=== PATIENT | male | born 1945 | race Caucasian/White ===

== ENCOUNTER 2017-06-23 11:57 | Observation (INO) | payer BC, MEDICARE ==
[2017-06-23 12:59] LABS: #Basophils 0.1 thou/uL (0.0-0.2); #Eosinphils 0.2 thou/uL (0.0-0.7); #Lymphocytes 1.9 thou/uL (1.20-3.40); #Monocytes 0.8 thou/uL (0.11-0.59); #Neutrophils 8.3 thou/uL (1.40-6.50); %Basophils 0.7 % (0.0-1.0); %Eosinophils 1.9 % (0.0-10.0); %Lymphocytes 16.8 % (21.0-51.0); %Monocytes 7.4 % (0.0-10.0); Hematocrit 36.6 % (42.0-52.0); Mean Platelet Volume 7.9 fL (7.4-10.4); Red Blood Cell (RBC) Count 3.78 mill/uL (4.70-6.10); White Blood Cell (WBC) Count 11.3 thou/uL (4.8-10.8)
[2017-06-23 13:15] LABS: PTT 28.5 SEC (22.9-36.1); Prothrombin Time 13.4 SEC (12.0-14.7)
[2017-06-23 13:25] LABS: ALT (SGPT) 20 U/L (8-55); AST (SGOT) 17 U/L (5-34); Alkaline Phosphatase 74 U/L (40-150); Anion Gap 14 mmol/L (10-20); BUN (Urea Nitrogen) 26 mg/dL (8.4-25.7); Bilirubin, Total 0.5 mg/dL (0.2-1.2); Calc. Creatinine Clearance 0 mL/min (70-130); Calcium 8.9 mg/dL (7.8-10.44); Carbon Dioxide 24 mmol/L (23-31); Chloride 105 mmol/L (98-107); Estimated GFR-MDRD Greater than 90; Protein, Total 6.7 g/dL (5.8-8.1)
[2017-06-23] MEDS ORDERED: Ondansetron HCl/PF 4 MG/2 ML Vial IVP PRN (14:04)
[2017-06-23] MEDS ORDERED: Senokot 8.6 MG TAB PO PRN (14:04)
[2017-06-23] MEDS ORDERED: Milk Of Magnesia 30 ML UDCUP PO PRN (14:04)
[2017-06-23] MEDS ORDERED: Dextrose 5% in Water 1,000 ML IV PRN (14:04)
[2017-06-23] MEDS ORDERED: Zolpidem Tartrate 5 MG TAB PO PRN (14:04)
[2017-06-23] MEDS ORDERED: Acetaminophen 325 MG TAB PO PRN (14:04)
[2017-06-23] MEDS ORDERED: Loperamide HCl 2 MG CAP PO PRN (14:04)
[2017-06-23] MEDS ORDERED: Insulin Regular 300 UNITS/3 ML VIAL SC PRN (14:04)
[2017-06-23] MEDS ORDERED: Ondansetron ODT 4 MG TAB PO PRN (14:04)
[2017-06-23] MEDS ORDERED: Loratadine 10 MG TAB PO PRN (14:04)
[2017-06-23] MEDS ORDERED: HumaLOG 300 UNITS/3 ML VIAL SC PRN (14:04)
[2017-06-23] MEDS ORDERED: Sodium Chloride 0.65% Nasal 44 ML BOT EA NARE PRN (14:04)
[2017-06-23] MEDS ORDERED: Artificial Tears 18 DROP/0.9 ML EA EYE PRN (14:04)
[2017-06-23] MEDS ORDERED: Mag-Al 1200 mg/1200 mg/30 ML UDCUP PO PRN (14:04)
[2017-06-23] MEDS ORDERED: Diabetic Tussin 200 MG/10 ML UDCUP PO PRN (14:04)
[2017-06-23] MEDS ORDERED: Eucerin (Mineral Oil/Petrolatum,White) 30 gm Jar TOP PRN (14:04)
[2017-06-23] MEDS ORDERED: Dextrose 50% Abboject 50 ML SYRINGE SLOW IVP PRN (14:04)
[2017-06-23] MEDS ORDERED: HYDROcodone/Acetaminophen 5/325 mg Tablet PO PRN (14:04)
[2017-06-23] MEDS ORDERED: Nitroglycerin 0.4 MG TAB (25 Tab Bottle) SL PRN (14:04)
--- NOTE | 2017-06-23 15:21 | HP ---
PRIMARY CARE PHYSICIAN: Micky Ragsdale MD REASON FOR ADMISSION: Lower gastrointestinal bleed. HISTORY OF PRESENT ILLNESS: A 72-year-old male who has history of hypertension, diabetes type 2, CO PD as well as diastolic CHF, who had a colonoscopy by Dr. Weeks on , 06/18/2017. At that merrick e, patient had 3 polyps removed and polyp pathology came back as a tubular adenoma and negative for malignancy. The patient was instructed to hold Plavix, which he was taking at home up until Thursday. Patient started taking Plavix on Thursday. Today, patient was having rectal bleed. Patient initial ly had dark blood and subsequently he had two episodes of bright red blood per rectum. He had three episodes of hematochezia at home and he had another episode of hematochezia with gas in the emergen cy room. Patient was feeling a little bit weak, fatigued. He denies any dizziness. He denies any chest pain. He denies any syncope. He denies any fever or chills. He denies taking any other bloo d thinner medication other than Plavix. He denies taking any other pain medication. Today in the emergency room, he had routine blood test and hemoglobin was 11.8. He was hemodynamica lly stable. The patient is being observed to telemetry floor for close monitoring. Patient does have dyspnea and he has underlying chronic obstructive pulmonary disease. He is using Breo Ellipta, which he ran out at home. REVIEW OF SYSTEMS: The following complete review of systems was negative, unless otherwise mentione d in the HPI or below: CONSTITUTIONAL: Weight loss or gain, ability to conduct usual activities. SKIN: Rash, itching. EYES: Double vision, pain. ENT/MOUTH: Nose bleeding, neck stiffness, pain, tenderness. CARDIOVASCULAR: Palpitations, dyspnea on exertion, orthopnea. RESPIRATORY: Shortness of breath, wheezing, cough, hemoptysis, fever or night sweats. GASTROINTESTINAL: Poor appetite, abdominal pain, heartburn, nausea, vomiting, constipation, or diar bernardo. GENITOURINARY: Urgency, frequency, dysuria, nocturia. MUSCULOSKELETAL: Pain, swelling. NEUROLOGIC/PSYCHIATRIC: Anxiety, depression. ALLERGY/IMMUNOLOGIC: Skin rash, bleeding tendency. Please see my HPI for pertinent positives and negatives. All other review of system reviewed and ne gative except as mentioned in the HPI. PAST MEDICAL HISTORY: Coronary artery disease, diabetes type 2, hypertension, dyslipidemia, COPD, C HF, peripheral vascular disease, chronic low back pain, benign enlargement of prostate, and dyslipid emia. PAST SURGICAL HISTORY: Bilateral knee surgery, appendicectomy, CABG x3, colonoscopy with polypectom y. PAST PSYCHIATRIC HISTORY: Reviewed and negative. SOCIAL HISTORY: Patient is . He smokes about 1 pack per day since age of 17. He denies any alcohol abuse. He denies any other illicit drug abuse. FAMILY HISTORY: No strong family history of premature coronary artery disease, stroke, or cancer. ALLERGIES: No known drug allergies. CURRENT HOME MEDICATIONS: Norvasc 5 mg p.o. daily, metformin 850 mg twice daily, Flomax 0.4 mg p.o. daily, Lipitor 80 mg p.o. at bedtime, Plavix 75 mg p.o. daily, [place] 10 one tablet q.6 hourly p.r.n ., irbesartan with hydrochlorothiazide 300/12.5 one tablet p.o. daily. EMERGENCY ROOM COURSE: Patient is receiving IV fluid. PHYSICAL EXAMINATION: VITAL SIGNS: On arrival, blood pressure 135/71, pulse 81, respiratory rate 18, temperature 97.5, sa turation 94% on room air, weight 108.9 kilograms. GENERAL: Patient is currently alert, awake, in no acute distress. HEENT: Head: Normocephalic, atraumatic. Eyes: Pupils round, reactive to light. Extraocular musc les intact. ENT: Oropharynx within normal limits. Moist mucous membranes. No oral lesions. No p haryngeal erythema. No exudate. NECK: Supple. Range of motion is normal. No meningeal signs of irritation. LUNGS: Clear to auscultation without any rhonchi or rales. CARDIAC: S1, S2 regular without any murmur. ABDOMEN: Soft, bowel sounds present, nontender, nondistended. No organomegaly, no mass, no suprapu bic tenderness. BACK: Unremarkable. No CVA tenderness. EXTREMITIES: Upper extremity passive movement of all joints are normal. Trace lower extremity aman a. Good peripheral pulsation. SKIN: No skin rash. HEMATOLOGICAL: No lymphadenopathy. NEUROLOGIC: Nonfocal examination. Speech normal. GENITOURINARY: Rectal examination done in the emergency room, showing bright red blood per rectum. FAMILY HISTORY: No strong family history of premature coronary artery disease, stroke, or cancer. SIGNIFICANT LABORATORY: CBC: WBC 11.3, hemoglobin 11.8, platelets 328. INR 1.0. BMP: Sodium 139 , potassium 3.8, chloride 105, carbon dioxide 24, anion gap 14, BUN 26, creatinine 0.73, glucose 91, calcium 8.9. LFTs: AST 17, ALT 20, alkaline phosphatase 74, albumin 3.7. monitoring manager showing sinus rhythm. ASSESSMENT AND PLAN: 1. Acute lower gastrointestinal bleed. This patient has hematochezia 3 times at home and one time in the emergency room. This patient had a colonoscopy and polypectomy was done. Differential diagn osis is post-polypectomy bleeding. Patient started taking Plavix yesterday and he has episode of bl eeding, polypectomy site ulcer, and visible vessel is also a possibility, another polyp bleeding is also possible, diverticular bleed is also possible. At this point, the patient will be observed on telemetry floor. We will consult hotel dining room cashier for possible evaluation with colonoscopy if ind icated. If he has recurrent bleeding, then he may need a RBC-tagged nuclear medicine scan to see si elsa of bleeding. We will monitor H and H and if his hemoglobin drops, then will consider transfusin g blood. We did type and cross in the emergency room. We will monitor patient's hemodynamics. If patient's blood pressure runs low, then we will hold on antihypertensive medication as well. 2. Anemia due to acute blood loss. This patient's hemoglobin previously was 13.7 and currently hem oglobin is 11.8. We will repeat H and H again; if blood count drops below 8, then we will consider transfusing him blood. We will monitor H and H. 3. Chronic obstructive pulmonary disease. We will continue with the DuoNeb q.6 hourly and Dulera 2 puffs inhalation b.i.d. 4. Coronary artery disease. We will hold aspirin and Plavix therapy at this point because of activ e bleeding, but we will continue statin therapy. We will monitor on telemetry floor. Currently, raquel krishnan does not have any chest pain. 5. Hypertension. The patient's home medication for blood pressure can be restarted as long as his hemodynamics permits. The patient is on amlodipine 5 mg p.o. daily, irbesartan 300 and hydrochlorot hiazide 12.5 mg p.o. daily. If blood pressure runs below 120, then we will hold on antihypertensive medication to prevent hypotension. 6. Benign enlargement of prostate. We will continue Flomax 0.4 mg daily. 7. Dyslipidemia. We will continue Lipitor 80 mg p.o. at bedtime. 8. Chronic low back pain. We will continue [place] as needed basis. 9. Tobacco abuse disorder. Smoking cessation counseling given. We will offer nicotine patch if ne eded. 10. Diabetes type 2. We will continue metformin 850 mg twice daily and insulin as per sliding scal e protocol. Diabetic diet will be given. We will continue with a clear liquid diet only at this po int. 11. Deep vein thrombosis prophylaxis, sequential compression device boots. No Lovenox because of b leeding. 12. Gastrointestinal prophylaxis, Pepcid 20 mg IV b.i.d. 13. Code status: The patient is FULL CODE. The patient's is surrogate decision maker. DISPOSITION AND PLAN: Based on clinical course.
[2017-06-23 15:53] VITALS: BMI 33.4
[2017-06-23 17:10] LABS: Hematocrit 34.6 % (42.0-52.0)
[2017-06-23] MEDS: Mometasone/Formoterol 120 PUFF INHALER INH SCH (19:01)
[2017-06-23] MEDS: GoLYTELY 4,000 ml Bottle PO SCH (20:50)
[2017-06-23] MEDS: Famotidine/PF 20 mg/2ml Vial SLOW IVP SCH (20:54)
[2017-06-23] MEDS ORDERED: Atorvastatin Calcium 40 MG TAB PO SCH (21:00)
[2017-06-23 21:04] LABS: Hematocrit 38.1 % (42.0-52.0)
--- NOTE | 2017-06-24 00:42 | CON ---
DATE OF CONSULTATION: 06/23/2017 REQUESTING PHYSICIAN: Dr. Richardson. REASON FOR CONSULTATION: Post-polypectomy bleeding. HISTORY OF PRESENT ILLNESS: Jared Pacheco is a 72-year-old man whom I recently saw in the GI clinic, performed screening colonoscopy on 06/18/2017, just 5 days ago. He has some chronic constipation, which is fairly well controlled and had had some recent left lower quadrant pain. The colonoscopy o n 06/18/2017 demonstrated 3 subcentimeter polyps in the sigmoid colon and transverse colon. These w ere all completely removed with hot snare and pathology showed tubular adenomas with no dysplasia. I had advised him to hold the Plavix for 3 days following the procedure, which he did and he restart ed that yesterday. This morning, he felt the sudden urge to have a bowel movement, passed a small a mount of dark red stool and then he had 2 more episodes at home in which he passed a larger amount o f bright red blood per rectum. He called our clinic and was advised to go to the ER. Upon arrival, he passed bright red blood one more time. He has not passed any more blood since the admission a f ew hours ago. Hemoglobin was found to be 11.8 and this dropped slightly to 11.2. Note, it was 13.7 last November. He really has no other symptoms. He denies any nausea, vomiting or abdominal pain. Vance benitez has a little bit of chronic fatigue, but no dizziness or lightheadedness. He has remained hemodyn amically stable and he was placed on a clear liquid diet. His Plavix was held. PAST MEDICAL HISTORY: Coronary artery disease, diabetes, hypertension, hyperlipidemia, COPD, CHF, p eripheral vascular disease, chronic low back pain, BPH and pulmonary embolus about 6 months ago, fin ished 6 months of Eliquis. PAST SURGICAL HISTORY: Appendectomy, bilateral knee surgery, CABG, colonoscopy with polypectomy x3 on 06/18/2017. SOCIAL HISTORY: He smokes a pack of cigarettes per day. No alcohol or drug abuse. FAMILY HISTORY: Negative for colon cancer. He had a sister with gastric cancer. ALLERGIES: No known drug allergies. HOME MEDICATIONS: Plavix 75 mg daily, Norvasc, metformin, Flomax, Lipitor, [place] p.r.n. 8 and irbes robert/hydrochlorothiazide. REVIEW OF SYSTEMS: Full review of systems including constitutional, head, eyes, ears, nose, throat, GI, , cardiovascular, respiratory, musculoskeletal and neurologic systems is negative except as n oted in the HPI. PHYSICAL EXAMINATION: VITAL SIGNS: Temperature 97.0, pulse 69, blood pressure 134/60 and 95% oxygen saturation on 2 liter s nasal cannula. GENERAL: In no acute distress, lying in bed comfortably. SKIN: No jaundice, no rashes were palpable. EYES: No scleral icterus. Extraocular movements intact. ENT: Mucous membranes moist, no oral lesions. LYMPH: No submandibular, supraclavicular lymphadenopathy. THYROID: Nontender to palpation. HEART: Regular rate and rhythm. LUNGS: Clear to auscultation bilaterally. ABDOMEN: Protuberant, bowel sounds present, soft, nontender to deep palpation throughout. No sourav s or organomegaly appreciated. EXTREMITIES: No peripheral edema. VESSELS: Radial pulses 2+ bilaterally. NEUROLOGICAL: Cranial nerves II through XII intact bilaterally. LABORATORY STUDIES: Hemoglobin 11.2, WBC 11.3, platelets 328. INR 1.0. BUN 26, creatinine 0.73, t otal bilirubin 0.5, alkaline phosphatase 74, AST 17, ALT 20, albumin 3.7. ASSESSMENT AND PLAN: 1. Post-polypectomy bleeding. 2. Acute blood loss anemia. The patient's presentation is consistent with post-polypectomy bleed from one of his 3 polypectomy s ites. He has had some modest, but significant decline in hemoglobin since last November. Agree with h olding the Plavix. Trend H\T\H. We will go ahead and administer bowel preparation as a split dose with the first dose this evening and the second dose tomorrow morning and anticipation of colonoscop y tomorrow afternoon. The patient understands and agrees with the plan. We also discussed that his 3 polyps were all adenomas. We would plan to repeat surveillance colonos copy to 3-year interval.
[2017-06-24 06:58] LABS: #Basophils 0.1 thou/uL (0.0-0.2); #Eosinphils 0.2 thou/uL (0.0-0.7); #Lymphocytes 1.3 thou/uL (1.20-3.40); #Monocytes 0.7 thou/uL (0.11-0.59); #Neutrophils 7.5 thou/uL (1.40-6.50); %Basophils 0.6 % (0.0-1.0); %Eosinophils 2.1 % (0.0-10.0); %Lymphocytes 13.7 % (21.0-51.0); %Monocytes 6.9 % (0.0-10.0); Hematocrit 33.3 % (42.0-52.0); Mean Platelet Volume 8.1 fL (7.4-10.4); Red Blood Cell (RBC) Count 3.45 mill/uL (4.70-6.10); White Blood Cell (WBC) Count 9.8 thou/uL (4.8-10.8)
[2017-06-24] MEDS: Mometasone/Formoterol 120 PUFF INHALER INH SCH (07:02)
[2017-06-24] MEDS: GoLYTELY 4,000 ml Bottle PO SCH (07:30)
[2017-06-24 07:33] LABS: ALT (SGPT) 18 U/L (8-55); AST (SGOT) 15 U/L (5-34); Alkaline Phosphatase 76 U/L (40-150); Anion Gap 10 mmol/L (10-20); BUN (Urea Nitrogen) 15 mg/dL (8.4-25.7); Bilirubin, Total 0.9 mg/dL (0.2-1.2); Calc. Creatinine Clearance 163 mL/min (70-130); Calcium 8.9 mg/dL (7.8-10.44); Carbon Dioxide 29 mmol/L (23-31); Chloride 106 mmol/L (98-107); Estimated GFR-MDRD Greater than 90; Globulin 2.7 g/dL (2.4-3.5); Protein, Total 6.2 g/dL (5.8-8.1)
[2017-06-24] MEDS ORDERED: Tamsulosin HCl 0.4 MG CAP PO SCH (09:00)
[2017-06-24] MEDS ORDERED: Hydrochlorothiazide 25 MG TAB PO SCH (09:00)
[2017-06-24] MEDS: Famotidine/PF 20 mg/2ml Vial SLOW IVP SCH (09:23)
--- NOTE | 2017-06-24 13:48 | PDOC.PN ---
- Subjective Encounter Start Date: 06/24/17 Encounter Start Time: 13:47 Subjective: last bloddy BM early this am then clear BMs -: no abd pain/distension - Objective Resuscitation Status: Resuscitation Status FULL:Full Resuscitation MAR Reviewed: Yes Vital Signs & Weight: Vital Signs (12 hours) Temp Pulse Resp BP BP BP Pulse Ox 06/24/17 12:06 68 16 93 L 06/24/17 12:00 98.6 F 64 24 H 147/64 H 94 L 06/24/17 09:25 65 147/65 H 06/24/17 07:30 97.9 F 65 18 06/24/17 07:18 97.9 F 65 18 145/67 H 96 06/24/17 07:02 71 16 97 06/24/17 07:00 71 16 97 06/24/17 04:00 97.8 F 67 18 146/66 H 94 L Weight Admit Weight 239 lb Weight 239 lb 12.8 oz I&O: 06/23/17 06/24/17 06/25/17 06:59 06:59 06:59 Intake Total 4718 Balance 4718 Result Diagrams: 06/24/17 06:34 06/24/17 06:34 Additional Labs: Accuchecks 06/24/17 06/23/17 06/23/17 11:07 20:06 17:03 POC Glucose 94 96 89 Laboratory Tests 06/23/17 06/23/17 06/23/17 12:50 17:03 20:58 Hgb 11.8 L 11.2 L 12.3 L 06/24/17 06:34 Hgb 10.8 L Phys Exam - Physical Examination Constitutional: NAD HEENT: PERRLA, moist MMs, sclera anicteric, oral pharynx no lesions Neck: no nodes, no JVD, supple, full ROM Respiratory: no wheezing, no rales, no rhonchi, clear to auscultation bilateral Cardiovascular: RRR, no significant murmur Gastrointestinal: soft, non-tender, no distention, positive bowel sounds Musculoskeletal: no edema, pulses present Neurological: non-focal, normal sensation, moves all 4 limbs Psychiatric: normal affect, A&O x 3 Skin: no rash Dx/Plan (1) GI bleed Code(s): K92.2 - GASTROINTESTINAL HEMORRHAGE, UNSPECIFIED Status: Acute Comment: Likley Post colonoscopy (2) Blood loss anemia Code(s): D50.0 - IRON DEFICIENCY ANEMIA SECONDARY TO BLOOD LOSS (CHRONIC) Status: Acute Comment: Stable H/H (3) COPD (chronic obstructive pulmonary disease) Status: Chronic (4) DM2 (diabetes mellitus, type 2) Status: Chronic (5) CAD (coronary artery disease) Code(s): I25.10 - ATHSCL HEART DISEASE OF [place] CORONARY ARTERY W/O ANG PCTRS Status: Chronic Comment: Plavix on Hold (6) HLD (hyperlipidemia) Code(s): E78.5 - HYPERLIPIDEMIA, UNSPECIFIED Status: Chronic - Plan plan discussed w/ family, out of bed/ambulate, DVT proph w/SCDs H/H stable.check again post colonoscopy. -: Colonoscopy later today.hemodynamically stable. -: Cont to hold Plavix -: am labs * . Review of Systems - Review of Systems Constitutional: negative: Fever, Chills, Sweats, Weakness, Malaise, Other Respiratory: negative: Cough, Dry, Shortness of Breath, Hemoptysis, SOB with Excertion, Pleuritic Pain, Sputum, Wheezing Cardiovascular: negative: Chest Pain, Palpitations, Orthopnea, Paroxysmal Noc. Dyspnea, Edema, Light Headedness, Other Gastrointestinal: negative: Nausea, Vomiting, Abdominal Pain, Diarrhea, Constipation, Melena, Hematochezia, Other Genitourinary: negative: Dysuria, Frequency, Incontinence, Hematuria, Retention , Other Musculoskeletal: negative: Neck Pain, Shoulder Pain, Arm Pain, Back Pain, Hand Pain, Leg Pain, Foot Pain, Other Neurological: negative: Weakness, Numbness, Incoordination, Change in Speech, Confusion, Seizures, Other - Medications/Allergies Allergies/Adverse Reactions: Allergies Allergy/AdvReac Type Severity Reaction Status Date / Time No Known Allergies Allergy Verified 11/28/16 11:50 Medications: Current Medications Acetaminophen (Tylenol) 650 mg PO Q4H PRN PRN Reason: Headache/Fever or Pain Hydrocodone Bitart/Acetaminophen ([place] 5/325) 1 tab PO Q4H PRN PRN Reason: Moderate Pain (4-6) Al Hydroxide/Mg Hydroxide (Maalox) 30 ml PO Q6H PRN PRN Reason: Heartburn or Indigestion Albuterol/Ipratropium (Duoneb) 3 ml NEB [id number] [facility] Last Admin: 06/24/17 12:06 Dose: 3 ml Amlodipine Besylate (Norvasc) 10 mg PO DAILY [facility] Last Admin: 06/24/17 09:25 Dose: 10 mg Artificial Tears (Tears Naturale) 0 drop EA EYE PRN PRN PRN Reason: Dry Eyes Atorvastatin Calcium (Lipitor) 80 mg PO HS [facility] Last Admin: 06/23/17 20:53 Dose: 80 mg Dextrose/Water (Dextrose 50%) 25 gm SLOW IVP PRN PRN PRN Reason: Hypoglycemia Famotidine (Pepcid) 20 mg SLOW IVP Q12HR [facility] Last Admin: 06/24/17 09:23 Dose: 20 mg Glucagon (Glucagon) 1 mg IM PRN PRN PRN Reason: Hypoglycemia Guaifenesin (Robitussin Sf) 200 mg PO Q4H PRN PRN Reason: Cough Hydralazine HCl (Apresoline) 10 mg SLOW IVP Q4H PRN PRN Reason: Systolic BP > 180 Hydrochlorothiazide (Hydrochlorothiazide) 12.5 mg PO DAILY [facility] Last Admin: 06/24/17 09:24 Dose: 12.5 mg Dextrose/Water (D5w) 1,000 mls @ 0 mls/hr IV .Q0M PRN; As Directed PRN Reason: Hypoglycemia Insulin Human Lispro (Humalog) 0 units SC .MODERATE SLIDING SC PRN PRN Reason: Moderate Correctional Scale Insulin Human Regular (Humulin R) 0 units SC .BEDTIME SLIDING SC PRN PRN Reason: Bedtime Correctional Scale Irbesartan (Avapro) 300 mg PO DAILY [facility] Last Admin: 06/24/17 09:23 Dose: 300 mg Loperamide HCl (Imodium) 2 mg PO PRN PRN PRN Reason: Diarrhea/Loose Stools Loratadine (Claritin) 10 mg PO DAILYPRN PRN PRN Reason: Sinus Symptoms Magnesium Hydroxide (Milk Of Magnesium) 30 ml PO DAILYPRN PRN PRN Reason: Constipation Mineral Oil/White Petrolatum (Eucerin Cream) 0 gm TOP BIDPRN PRN PRN Reason: Dry Skin Mometasone Furoate/Formoterol Fumar (Dulera 200 Mcg/5 Mcg Inhaler) 2 puff INH BID-RT [facility] Last Admin: 06/24/17 07:02 Dose: 2 puff Nitroglycerin (Nitrostat) 0.4 mg SL Q5MIN PRN PRN Reason: Chest Pain Ondansetron HCl (Zofran Odt) 4 mg PO Q6H PRN PRN Reason: Nausea/Vomiting Ondansetron HCl (Zofran) 4 mg IVP Q6H PRN PRN Reason: Nausea/Vomiting Senna (Senokot) 2 tab PO HSPRN PRN PRN Reason: Constipation Sodium Chloride ([place] Nasal [place] 0.65%) 0 ml EA NARE QIDPRN PRN PRN Reason: Nasal Congestion Tamsulosin HCl (Flomax) 0.4 mg PO DAILY [facility] Last Admin: 06/24/17 09:25 Dose: 0.4 mg Zolpidem Tartrate (Ambien) 5 mg PO HSPRN PRN PRN Reason: Insomnia
[2017-06-24] MEDS ORDERED: Propofol 200 MG/20 ML VIAL ONE (14:26)
[2017-06-24] MEDS ORDERED: Promethazine HCl 25 MG/ML VIAL IM PRN (15:06)
[2017-06-24] MEDS ORDERED: Promethazine HCl 25 MG/ML VIAL SLOW IVP PRN (15:06)
[2017-06-24] MEDS ORDERED: Ondansetron HCl/PF 4 MG/2 ML Vial IVP PRN (15:06)
[2017-06-24 15:35] VITALS: BP 169/73; TEMP 96.9
--- NOTE | 2017-06-24 16:25 | OP ---
GI ENDOSCOPY NOTE DATE OF PROCEDURE: 06/24/2017 SURGEON: Micky Weeks M.D. SILK BRUSHER SURGEON: None. PROCEDURE: Colonoscopy with snare polypectomy and Hemoclip placement. INDICATIONS: Post-polypectomy bleeding, following colonoscopy with hot snare removal of 3 tubular a denomas 6 days ago. MEDICATIONS: See anesthesia record. FINDINGS: After discussion of the risks, benefits and alternatives of the procedure, informed conse nt was obtained and witnessed. Pre-endoscopic cardiopulmonary examination was satisfactory. Timeou t was performed before sedation was achieved. Sedation was achieved with anesthesia assistance in [facility] endoscopy unit. Digital rectal exam was performed which was unremarkable. A Pentax adult colono scope was inserted into the anus and passed forward to the cecum in the usual fashion. The cecal ba se was identified by the appendiceal orifice as well as the ileocecal valve. The terminal ileum was intubated and the ileal mucosa appeared normal. There was no old blood or active bleeding in the t erminal ileum. The colonoscope was then slowly withdrawn in a gradual and circumferential manner wi th careful examination of the entire colonic mucosa. The quality of the prep was good. There was n o evidence of any old blood or active bleeding in the colon. In the ascending colon, there was actu ally a small sessile polyp measuring 3 mm. This was completely removed with cold snare, with no sub sequent bleeding and retrieved for pathology. In the transverse colon, there was a large post-polyp ectomy ulcer with a visible vessel. There was no active bleeding from this, but this is likely the site of his recent hemorrhage. Two Hemoclips were successfully placed across the ulcer with visible vessel and hemostasis was maintained. There was another smaller ulcer with a clean base in the tra nsverse colon as well as the final post-polypectomy ulcer visualized in the sigmoid colon, also with a clean base. There was diverticulosis throughout the left side of the colon. Retroflexion in the rectum demonstrates nonbleeding internal hemorrhoids. The colonoscope was then completely withdraw n and the patient allowed to recover. The patient tolerated the procedure well. There were no imme diate post-procedure complications. IMPRESSION: 1. No old blood or active bleeding. 2. Post-polypectomy ulcer in the transverse colon, the visible vessel, now status post 2 Hemoclips placed with hemostasis maintained. 3. Two other smaller post-polypectomy ulcers with clean bases, no intervention. 4. A 3-mm sessile ascending colon polyp, completely removed with cold snare, not retrieved. 5. Left-sided diverticulosis. 6. Internal hemorrhoids. RECOMMENDATIONS: 1. Will have the patient hold his Plavix for 1 week, then resume. 2. Advance diet. 3. Repeat colonoscopy for surveillance in 3 years. 4. Patient is okay for discharge home from a GI perspective.
[2017-06-24 17:06] LABS: Hematocrit 34.7 % (42.0-52.0)
--- NOTE | 2017-06-25 09:06 | DIS ---
DATE OF ADMISSION: 06/23/2017 DATE OF DISCHARGE: 06/24/2017 CONDITION AT THE TIME OF DISCHARGE: Stable and improved. DISCHARGE DIAGNOSES: 1. Lower gastrointestinal bleed secondary to post-colonoscopy, polypectomy. 2. Acute blood loss anemia. SECONDARY DISCHARGE DIAGNOSES: 1. Coronary artery disease. 2. Diabetes mellitus type 2. 3. Hypertension. 4. Dyslipidemia. 5. Chronic obstructive pulmonary disease. 6. Congestive heart failure. 7. Peripheral vascular disease. 8. Benign prostatic hypertrophy. 9. Dyslipidemia. DISCHARGE MEDICATIONS: The patient is instructed not to take his Plavix for 1 week, but resumed oth er medications as follows: 1. Lipitor 80 mg daily. 2. Aspirin 81 mg daily. 3. Irbesartan and hydrochlorothiazide 300/12.5 mg daily. 4. Amlodipine 5 mg daily. 5. Flomax 0.4 mg daily. 6. Metformin 850 mg p.o. b.i.d. CONSULTATIONS: Inhouse include Gastroenterology, Dr. Micky Weeks. PROCEDURES DONE IN THE HOSPITAL: Include colonoscopy in 06/24/2017 which showed no old blood or act july bleeding. It did show post-polypectomy ulcer in transverse colon with visible vessel for which Hemoclips were placed with hemostasis maintained and it also showed left-sided diverticulosis and in ternal hemorrhoids. ADMISSION HISTORY: Mr. Pacheco is a very pleasant 72-year-old male who recently has had an outpatie nt colonoscopy done 3 days prior to admission. He started to experience some bleeding per rectum an d presented to the ER. This was associated with weakness and fatigue. In his presentation, hemoglo bin was 11.8 with baseline around 13. He was admitted for observation and intervention and Gastroen terology was consulted. He was hemodynamically stable upon presentation. Please see admission hist ory and physical for further details. HOSPITAL COURSE: The patient's H\T\H was monitored throughout and he did not require any blood ramírez sfusion. He has restarted Plavix as an outpatient which was once again held for now. Dr. Weeks from Gastroenterology saw the patient and took him back to the colonoscopy suite. He was found to have a visible vessel in one of the polypectomy ulcers which got hemoclipped. The patient's hemoglobin o n discharge was 11.2 without transfusion and he was cleared by Gastroenterology for discharge after the colonoscopy and the patient was eager to go. He is instructed to hold his Plavix for 1 more wee k and follow up with his primary care physician as well as Gastroenterology as an outpatient. He ve rbalized understanding. The patient was seen and examined prior to discharge. Please see hospitalist progress note from yoshi ball's date for further details. PRIMARY CARE PHYSICIAN: Micky Ragsdale M.D.
== END 2017-06-24 18:41 | disposition home or self-care (01) ==
LOC: ERS 11:57 → ERHOLD 13:25 → 2NO 15:50
PROVIDERS: ADMIT Internal Medicine; ATTEND Internal Medicine
PROC: 0DBK8ZZ Excision of Ascending Colon, Via Natural or Artificial Opening Endoscopic (ICD-10-PCS; principal; 2017-06-24)
PROC: 0DBL8ZZ Excision of Transverse Colon, Via Natural or Artificial Opening Endoscopic (ICD-10-PCS; 2017-06-24)
DX: K91.840 Postprocedural hemorrhage of a digestive system organ or structure following a digestive system procedure (principal); D62 Acute posthemorrhagic anemia; K57.30 Diverticulosis of large intestine without perforation or abscess without bleeding; K63.5 Polyp of colon; K64.8 Other hemorrhoids; T81.89XA Other complications of procedures, not elsewhere classified, initial encounter; I25.10 Atherosclerotic heart disease of native coronary artery without angina pectoris; E11.9 Type 2 diabetes mellitus without complications; E78.5 Hyperlipidemia, unspecified; J44.9 Chronic obstructive pulmonary disease, unspecified; I11.0 Hypertensive heart disease with heart failure; I50.30 Unspecified diastolic (congestive) heart failure; E11.51 Type 2 diabetes mellitus with diabetic peripheral angiopathy without gangrene; N40.0 Benign prostatic hyperplasia without lower urinary tract symptoms; Z86.010 Personal history of colon polyps; M54.5 Low back pain; G89.29 Other chronic pain; F17.210 Nicotine dependence, cigarettes, uncomplicated; Z79.84 Long term (current) use of oral hypoglycemic drugs; Z79.82 Long term (current) use of aspirin; Z79.899 Other long term (current) drug therapy; Z95.1 Presence of aortocoronary bypass graft; Z96.653 Presence of artificial knee joint, bilateral
CPT/HCPCS: 36415; 36416; 80053; 85025; 85610; 85730; 86850; 86900; 86901; 94640; 96360; 96361; 96374; 96376; G0378; J2704; J7620; S0028

== ENCOUNTER 2018-01-12 10:26 | Outpatient (CLI) | payer BC, MEDICARE ==
--- NOTE | 2018-01-12 12:13 | RAD ---
CHEST TWO VIEWS: 01/12/2018 PROVIDED CLINICAL HISTORY: Dyspnea. COMPARISON: 12/04/2016 FINDINGS: Cardiac and mediastinal silhouette is unchanged in appearance. Median sternotomy changes and atheros clerosis are redemonstrated. Stable appearing left lower lobe lungs appear otherwise clear. No pleu ral fluid or pneumothorax apparent. IMPRESSION: Stable radiographic appearance of the chest. POS: [facility]
== END 2018-01-12 10:27 | disposition home or self-care (01) ==
LOC: RAD 10:26
PROVIDERS: ATTEND Internal Medicine Critical Care Medicine
DX: R06.00 Dyspnea, unspecified (principal)
CPT/HCPCS: 71046

== ENCOUNTER 2018-04-20 09:24 | Outpatient (CLI) | payer BC, MEDICARE ==
--- NOTE | 2018-04-20 11:19 | RAD ---
TWO VIEW CHEST: COMPARISON: 01/12/2018 FINDINGS: Stable 2.5 cm, rounded nodule at the left lower lung zone. There is blunting of the left costophreni c sulcus. Mild interstitial prominence of each lung is present. There is evidence of a prior sterno katie with vascular calcification and a prominent sized cardiac silhouette. IMPRESSION: 1. Stable, rounded density of the inferior left lung. 2. Congestive heart failure. POS: [facility]
== END 2018-04-20 09:25 | disposition home or self-care (01) ==
LOC: RAD 09:24
PROVIDERS: ATTEND Internal Medicine Critical Care Medicine
DX: R06.00 Dyspnea, unspecified (principal); I50.9 Heart failure, unspecified
CPT/HCPCS: 71046

== ENCOUNTER 2018-08-30 13:10 | Outpatient (CLI) | payer BC, MEDICARE ==
--- NOTE | 2018-08-30 15:15 | RAD ---
2 VIEW CHEST: Date: 08/30/18 Reference made to 04/20/18 exam. INDICATION: Dyspnea. FINDINGS: Rounded mass of the left lower lung zone remains. No new consolidation. Cardiomediastinal silhouette is stable. Generalized mild interstitial prominence is again seen. IMPRESSION: 1. Stable chest. 2. Mass of the left lower lung zone is grossly stable. POS: [facility]
== END 2018-08-30 13:11 | disposition home or self-care (01) ==
LOC: RAD 13:10
PROVIDERS: ATTEND Internal Medicine Critical Care Medicine
DX: R06.00 Dyspnea, unspecified (principal); R91.8 Other nonspecific abnormal finding of lung field
CPT/HCPCS: 71046

== ENCOUNTER 2019-06-28 08:07 | Outpatient (CLI) | payer MEDICARE ==
--- NOTE | 2019-06-28 09:26 | MRI ---
EXAM: MRI Lumbar Spine WO Con PROVIDED CLINICAL HISTORY: Lumbar stenosis COMPARISON: None FINDINGS: 5 lumbar vertebral bodies are assumed. There is slight retrolisthesis of L2 on L3 and L1 on L2. Verte bral body heights appear preserved. No focal concerning regional marrow signal abnormality is evident. Conus medullaris is normal in signal and terminates at an appropriate level. T2 hyperintense structure involving the inferior aspect of the left kidney statistically reflects a cyst but is incompletely characterized. At L1-2, there is disc space narrowing and endplate change. There is a broad-based disc bulge and rose ateral facet arthritis. There is mild central canal stenosis. There is no significant foraminal narrowing apparent. At L2-3, there is a broad-based disc bulge and bilateral facet arthritis. There is mild central canal stenosis. There is mild right foraminal narrowing. At L3-4, there is a broad-based disc bulge and bilateral facet arthritis. There is no significant yanely tral canal stenosis apparent. There is mild right foraminal narrowing. There is no significant left foraminal narrowing. At L4-5, there is bilateral facet arthritis and a mild broad-based disc bulge. There is mild bilatera l foraminal narrowing. No significant central canal stenosis apparent. At L5-S1, there is a broad-based disc bulge and bilateral facet arthritis. No significant central can al stenosis apparent. Severe right foraminal narrowing with potential for impingement on the exiting right L5 nerve root. Moderate left foraminal narrowing. 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
== END 2019-06-28 08:08 | disposition home or self-care (01) ==
LOC: BICMRI 08:07
PROVIDERS: ATTEND Neurological Surgery
DX: M48.062 Spinal stenosis, lumbar region with neurogenic claudication (principal); M48.07 Spinal stenosis, lumbosacral region; M47.816 Spondylosis without myelopathy or radiculopathy, lumbar region; M51.36 Other intervertebral disc degeneration, lumbar region
CPT/HCPCS: 72148

== ENCOUNTER 2020-10-17 10:09 | Outpatient (CLI) | payer MEDICARE ==
--- NOTE | 2020-10-17 10:26 | RAD ---
EXAM: Two views chest PROVIDED CLINICAL HISTORY: Dyspnea COMPARISON: 08/30/2018 FINDINGS: Cardiac and mediastinal silhouette appears within normal limits. Stable lingular pulmonary nodule. Charissa ngs appear otherwise free of significant opacity. Median sternotomy changes and atherosclerosis of the aorta redemonstrated. No pleural fluid or pneumothorax apparent. IMPRESSION: No evidence for an acute cardiopulmonary process.
== END 2020-10-17 10:10 | disposition home or self-care (01) ==
LOC: BICRAD 10:09
PROVIDERS: ATTEND Internal Medicine Critical Care Medicine
DX: R06.00 Dyspnea, unspecified (principal)
CPT/HCPCS: 71046

== ENCOUNTER 2021-11-20 10:54 | Outpatient (CLI) | payer MEDICARE | END 2021-11-20 10:55 | disposition home or self-care (01) | LOC: RAD 10:54 | PROVIDERS: ATTEND Internal Medicine Critical Care Medicine | DX: R06.00 Dyspnea, unspecified (principal); R91.1 Solitary pulmonary nodule | CPT/HCPCS: 71046 ==

== ENCOUNTER 2024-03-29 15:54 | Emergency (ER) | payer MEDICARE ==
[2024-03-29 18:13] LABS: #Basophils 0.05 10x3/uL (0.0-0.2); %Basophils 0.5 % (0.0-1.0); %Eosinophils 2.5 % (0.0-10.0); %Lymphocytes 21.2 % (21.0-51.0); %Monocytes 7.4 % (0.0-10.0); %Neutrophils 68.1 % (42.0-75.0); Hematocrit 43.4 % (42.0-52.0); Hemoglobin 13.9 g/dL (14.0-18.0); Mean Corpuscular Volume 93.5 fL (78.0-98.0); Mean Platelet Volume 11.1 fL (7.4-10.4); Platelet Count 282 10x3/uL (130-400); RBC Distribution Width 15.9 % (11.5-14.5); Red Blood Cell (RBC) Count 4.64 mill/uL (4.70-6.10)
[2024-03-29 18:33] LABS: ALT (SGPT) 19 U/L (8-55); AST (SGOT) 23 U/L (5-34); Albumin 3.7 g/dL (3.4-4.8); Alkaline Phosphatase 66 U/L (40-110); Anion Gap 14 mmol/L (10-20); BUN (Urea Nitrogen) 19 mg/dL (8.4-25.7); Bilirubin, Total 1.1 mg/dL (0.2-1.2); Calc. Creatinine Clearance 0 mL/min (70-130); Calcium 9.6 mg/dL (7.8-10.44); Carbon Dioxide 23 mmol/L (23-31); Chloride 104 mmol/L (98-107); Estimated GFR 92; Globulin 3.1 g/dL (2.4-3.5); Glucose 83 mg/dL (83-110); Potassium 3.4 mmol/L (3.5-5.1); Protein, Total 6.8 g/dL (5.8-8.1); Sodium 138 mmol/L (136-145)
[2024-03-29 18:44] LABS: Bacteria/HPF None Seen HPF (None Seen); Bilirubin Negative (Negative); Blood, Urine Negative (Negative); CAUTI Indications for Culture Dysuria,urgency,freq; Clarity Clear (Clear); Glucose, Urine (Dipstick) Normal (Negative); Ketone, Urine Negative (Negative); Leukocyte Negative Leu/uL (Negative); Mucous/LPF Rare LPF (<2+); Nitrite Negative (Negative); Protein, Urine (Dipstick) 100 mg/dL (Neg-Trace); RBC/HPF 0-3 HPF (0-3); Specific Gravity, Urine 1.025 (1.002-1.036); Squamous Epithelial None Seen HPF (0-3); WBC/HPF 0-3 HPF (0-3)
[2024-03-29 18:46] LABS: Urine Culture Reflex No No
[2024-03-29] MEDS ORDERED: Boostrix 0.5 ML (Tdap) VIAL (>/=7 yrs of age) ONE (19:04)
[2024-03-29] MEDS ORDERED: Bacitracin 1 PK ONE (19:05)
== END 2024-03-29 19:17 | disposition home or self-care (01) ==
LOC: ERS 15:54
DX: S09.90XA Unspecified injury of head, initial encounter (principal); S70.01XA Contusion of right hip, initial encounter; E11.9 Type 2 diabetes mellitus without complications; I10 Essential (primary) hypertension; F17.210 Nicotine dependence, cigarettes, uncomplicated; Z23 Encounter for immunization; W18.30XA Fall on same level, unspecified, initial encounter; Y92.090 Kitchen in other non-institutional residence as the place of occurrence of the external cause; S51.011A Laceration without foreign body of right elbow, initial encounter
CPT/HCPCS: 36415; 70450; 72125; 72170; 80053; 81001; 84484; 85025; 90471; 90715; 93005

== ENCOUNTER 2024-04-22 12:26 | Outpatient (CLI) | payer MEDICARE ==
[2024-04-22] MEDS ORDERED: Magnevist 469MG/ML 20 ML VIAL ONE (12:41)
== END 2024-04-22 12:27 | disposition home or self-care (01) ==
LOC: BICMRI 12:26
PROVIDERS: ATTEND Internal Medicine
DX: Z04.3 Encounter for examination and observation following other accident (principal); W19.XXXA Unspecified fall, initial encounter; J34.89 Other specified disorders of nose and nasal sinuses; I67.89 Other cerebrovascular disease
CPT/HCPCS: 70553; A9579

== ENCOUNTER 2024-07-25 09:40 | Outpatient (CLI) | payer MEDICARE | END 2024-07-25 09:41 | disposition home or self-care (01) | LOC: RAD 09:40 | PROVIDERS: ATTEND Internal Medicine Critical Care Medicine | DX: R06.00 Dyspnea, unspecified (principal); J98.11 Atelectasis; J90 Pleural effusion, not elsewhere classified; I51.7 Cardiomegaly; R91.8 Other nonspecific abnormal finding of lung field; Z98.890 Other specified postprocedural states | CPT/HCPCS: 71046 ==

== ENCOUNTER 2024-10-21 10:13 | Outpatient (CLI) | payer MEDICARE | END 2024-10-21 10:14 | disposition home or self-care (01) | LOC: RAD 10:13 | PROVIDERS: ATTEND Internal Medicine Critical Care Medicine | DX: R06.00 Dyspnea, unspecified (principal); R91.8 Other nonspecific abnormal finding of lung field; J98.4 Other disorders of lung; I70.0 Atherosclerosis of aorta | CPT/HCPCS: 71046 ==

== ENCOUNTER 2024-11-08 10:50 | Outpatient (CLI) | payer MEDICARE | END 2024-11-08 10:51 | disposition home or self-care (01) | LOC: RAD 10:50 | PROVIDERS: ATTEND Internal Medicine Critical Care Medicine | DX: R06.00 Dyspnea, unspecified (principal); R91.8 Other nonspecific abnormal finding of lung field | CPT/HCPCS: 71046 ==

== ENCOUNTER 2025-05-17 16:33 | Inpatient (IN) | payer MEDICARE ==
[2025-05-17 18:25] LABS: #Basophils 0.08 10x3/uL (0.0-0.2); #Eosinophils 0.14 10x3/uL (0.0-0.7); #Monocytes 0.82 10x3/uL (0.11-0.59); #Neutrophils 7.61 10x3/uL (1.40-6.50); %Basophils 0.7 % (0.0-1.0); %Eosinophils 1.2 % (0.0-10.0); %Lymphocytes 23.3 % (21.0-51.0); %Monocytes 7.3 % (0.0-10.0); %Neutrophils 67.2 % (42.0-75.0); Hematocrit 39.4 % (42.0-52.0); Hemoglobin 12.7 g/dL (14.0-18.0); Mean Corpuscular Hemoglobin 29.7 pg (27.0-31.0); Mean Corpuscular Volume 92.1 fL (78.0-98.0); Platelet Count 368 10x3/uL (130-400); Red Blood Cell (RBC) Count 4.28 mill/uL (4.70-6.10); White Blood Cell (WBC) Count 11.31 10x3/uL (4.8-10.8)
[2025-05-17 18:42] LABS: ALT (SGPT) 35 U/L (Less than 45); AST (SGOT) 36 U/L (11-34); Albumin 3.6 g/dL (3.1-4.5); Alkaline Phosphatase 132 U/L (40-110); Anion Gap 15 mmol/L (10-20); BUN (Urea Nitrogen) 24 mg/dL (8.4-25.7); Bilirubin, Total 0.8 mg/dL (0.3-1.2); Calc. Creatinine Clearance 0 mL/min (70-130); Calcium 9.0 mg/dL (7.8-10.44); Carbon Dioxide 24 mmol/L (23-31); Chloride 103 mmol/L (98-107); Globulin 3.6 g/dL (2.4-3.5); Glucose 105 mg/dL (83-110); Potassium 3.7 mmol/L (3.5-5.1); Sodium 138 mmol/L (136-145)
[2025-05-17] MEDS ORDERED: Ondansetron PF 4 MG/2 ML Vial ONE (18:52)
[2025-05-17] MEDS ORDERED: niCARdipine 25 MG in Sodium Chloride 0.9% 250 ML 250 ML IVPB PRN (21:08)
[2025-05-17] MEDS ORDERED: NO ANTITHROMBOTICS FS SCH (21:08)
[2025-05-17] MEDS ORDERED: Albuterol 200 PUFF (6.7GM INHALER) INH PRN (21:25)
[2025-05-18 07:17] LABS: Bacteria/HPF None Seen HPF (None Seen); CAUTI Indications for Culture Dysuria,urgency,freq; Glucose, Urine (Dipstick) Normal (Negative); Leukocyte Negative Leu/uL (Negative); Protein, Urine (Dipstick) 50 mg/dL (Neg-Trace); RBC/HPF 0-3 HPF (0-3); WBC/HPF None Seen HPF (0-3)
[2025-05-18 07:38] LABS: Specific Gravity, Urine Greater than 1.050 (1.002-1.036)
[2025-05-18 07:39] LABS: Urine Culture Reflex No No
[2025-05-18] MEDS: Famotidine 20 MG TAB PO SCH (09:19)
[2025-05-18 15:10] LABS: Hematocrit 37.1 % (42.0-52.0); Hemoglobin 12.0 g/dL (14.0-18.0); Mean Corpuscular Hemoglobin 29.9 pg (27.0-31.0); Mean Corpuscular Volume 92.5 fL (78.0-98.0); Platelet Count 310 10x3/uL (130-400); Red Blood Cell (RBC) Count 4.01 mill/uL (4.70-6.10); White Blood Cell (WBC) Count 10.87 10x3/uL (4.8-10.8)
[2025-05-18 15:55] LABS: Anion Gap 12 mmol/L (10-20); BUN (Urea Nitrogen) 31 mg/dL (8.4-25.7); Calc. Creatinine Clearance 81 mL/min (70-130); Calcium 9.0 mg/dL (7.8-10.44); Carbon Dioxide 26 mmol/L (23-31); Cardiac Risk 2.8 (Less than 4.5); Chloride 105 mmol/L (98-107); Cholesterol 94 mg/dl (< 200 Desired); Glucose 97 mg/dL (83-110); HDL Cholesterol 34 mg/dL (>60 Neg Risk); Iron 54 ug/dL (65-175); Iron Binding Capacity, Total 298 mcg/dL (261-462); LDL Cholesterol, Calculated 45 mg/dL; Magnesium 2.1 mg/dL (1.6-2.6); Potassium 3.4 mmol/L (3.5-5.1); Sodium 140 mmol/L (136-145); Triglycerides 74 mg/dL (Less than 150)
[2025-05-18] MEDS: Mometasone 200 MCG/Formoterol 5 MCG 120 PUFF INHALER INH SCH (19:03)
[2025-05-18 21:19] LABS: Potassium 3.2 mmol/L (3.5-5.1)
[2025-05-18] MEDS: Transdermal Patch Removal TOP SCH (21:36)
[2025-05-18] MEDS: hydrALAZINE 20 MG/ML VIAL SLOW IVP PRN (21:49)
[2025-05-19] MEDS: Acetaminophen 325 MG TAB PO PRN (01:07)
[2025-05-19] MEDS: POTASSIUM CHLORIDE 20 MEQ IVPB SCH (01:22)
[2025-05-19 05:04] LABS: #Basophils 0.03 10x3/uL (0.0-0.2); #Eosinophils Less than 0.03 10x3/uL (0.0-0.7); #Monocytes 0.62 10x3/uL (0.11-0.59); #Neutrophils 11.19 10x3/uL (1.40-6.50); %Basophils 0.2 % (0.0-1.0); %Eosinophils 0.0 % (0.0-10.0); %Lymphocytes 6.2 % (21.0-51.0); %Monocytes 4.9 % (0.0-10.0); %Neutrophils 88.5 % (42.0-75.0); Hematocrit 34.8 % (42.0-52.0); Hemoglobin 11.4 g/dL (14.0-18.0); Mean Corpuscular Hemoglobin 30.1 pg (27.0-31.0); Mean Corpuscular Volume 91.8 fL (78.0-98.0); Platelet Count 300 10x3/uL (130-400); Red Blood Cell (RBC) Count 3.79 mill/uL (4.70-6.10); White Blood Cell (WBC) Count 12.66 10x3/uL (4.8-10.8)
[2025-05-19 05:34] LABS: ALT (SGPT) 28 U/L (Less than 45); AST (SGOT) 27 U/L (11-34); Albumin 3.4 g/dL (3.1-4.5); Alkaline Phosphatase 133 U/L (40-110); Anion Gap 13 mmol/L (10-20); BUN (Urea Nitrogen) 31 mg/dL (8.4-25.7); Bilirubin, Total 0.8 mg/dL (0.3-1.2); Calc. Creatinine Clearance 92 mL/min (70-130); Calcium 8.8 mg/dL (7.8-10.44); Carbon Dioxide 22 mmol/L (23-31); Chloride 105 mmol/L (98-107); Globulin 2.9 g/dL (2.4-3.5); Glucose 120 mg/dL (83-110); Magnesium 2.0 mg/dL (1.6-2.6); Potassium 3.4 mmol/L (3.5-5.1); Sodium 137 mmol/L (136-145)
[2025-05-19] MEDS: Magnesium 2 GM/50 ML(in water) 2 GM in Premix 1 BAG IVPB SCH (08:55)
[2025-05-19] MEDS: Senokot S 8.6-50 MG TAB PO SCH (08:56)
[2025-05-19] MEDS: Sodium Ferric Gluconate 250 MG in Sodium Chloride 0.9% 250 ML 250 ML IVPB SCH (10:35)
[2025-05-19] MEDS: PNEUMOC 20-VAL CONJ-DIP CRM/PF 0.5 ML SYRINGE IM ONE (11:58)
[2025-05-19] MEDS ORDERED: Sodium Bicarbonate 2.5 MEQ/5 ML SDV ONE (14:52)
[2025-05-19 18:48] LABS: CSF Source CSF
[2025-05-19 19:01] LABS: CSF, Glucose 67.0 mg/dl (40-70); CSF, Protein 52.1 mg/dL (15-40)
[2025-05-19] MEDS: Folic Acid/Vit B Comp W-C PO SCH (19:30)
[2025-05-19] MEDS: Pantoprazole 40 MG DR.TAB PO SCH (19:30)
[2025-05-20] MEDS: Enoxaparin 80 MG (0.8 mL) SYRINGE SC SCH ×2 (02:06→09:41)
[2025-05-20 04:26] LABS: #Basophils 0.04 10x3/uL (0.0-0.2); #Eosinophils Less than 0.03 10x3/uL (0.0-0.7); #Monocytes 0.75 10x3/uL (0.11-0.59); #Neutrophils 11.91 10x3/uL (1.40-6.50); %Basophils 0.3 % (0.0-1.0); %Eosinophils 0.1 % (0.0-10.0); %Lymphocytes 5.1 % (21.0-51.0); %Monocytes 5.6 % (0.0-10.0); %Neutrophils 88.5 % (42.0-75.0); Hematocrit 35.4 % (42.0-52.0); Hemoglobin 11.4 g/dL (14.0-18.0); Mean Corpuscular Hemoglobin 29.7 pg (27.0-31.0); Mean Corpuscular Volume 92.2 fL (78.0-98.0); Platelet Count 293 10x3/uL (130-400); Red Blood Cell (RBC) Count 3.84 mill/uL (4.70-6.10); White Blood Cell (WBC) Count 13.44 10x3/uL (4.8-10.8)
[2025-05-20 05:04] LABS: ALT (SGPT) 23 U/L (Less than 45); AST (SGOT) 33 U/L (11-34); Albumin 3.1 g/dL (3.1-4.5); Anion Gap 11 mmol/L (10-20); BUN (Urea Nitrogen) 25 mg/dL (8.4-25.7); Bilirubin, Total 0.7 mg/dL (0.3-1.2); Calc. Creatinine Clearance 119 mL/min (70-130); Calcium 8.6 mg/dL (7.8-10.44); Carbon Dioxide 21 mmol/L (23-31); Chloride 107 mmol/L (98-107); Globulin 2.7 g/dL (2.4-3.5); Glucose 106 mg/dL (83-110); Magnesium 2.3 mg/dL (1.6-2.6); Potassium 3.4 mmol/L (3.5-5.1); Sodium 136 mmol/L (136-145)
[2025-05-20 05:13] LABS: Alkaline Phosphatase 118 U/L (40-110)
[2025-05-20] MEDS: Spironolactone 25 MG TAB PO SCH (09:40)
[2025-05-20] MEDS: Aspirin 81 mg Enteric Coated Tablet PO SCH (09:41)
[2025-05-20] MEDS: Citalopram 20 MG TAB PO SCH (09:41)
[2025-05-20] MEDS: Privigen 20 GM, Privigen 10 GM in IV Admixture Fee-Chemo 1 UNITS IVPB SCH (12:40)
[2025-05-20 19:01] LABS: Potassium 3.5 mmol/L (3.5-5.1)
[2025-05-21 04:03] LABS: #Basophils 0.03 10x3/uL (0.0-0.2); #Eosinophils 0.12 10x3/uL (0.0-0.7); #Monocytes 0.59 10x3/uL (0.11-0.59); #Neutrophils 16.51 10x3/uL (1.40-6.50); %Basophils 0.2 % (0.0-1.0); %Eosinophils 0.7 % (0.0-10.0); %Lymphocytes 3.8 % (21.0-51.0); %Monocytes 3.3 % (0.0-10.0); %Neutrophils 91.3 % (42.0-75.0); Hematocrit 33.0 % (42.0-52.0); Hemoglobin 10.9 g/dL (14.0-18.0); Mean Corpuscular Hemoglobin 30.0 pg (27.0-31.0); Mean Corpuscular Volume 90.9 fL (78.0-98.0); Platelet Count 297 10x3/uL (130-400); Red Blood Cell (RBC) Count 3.63 mill/uL (4.70-6.10); White Blood Cell (WBC) Count 18.05 10x3/uL (4.8-10.8)
[2025-05-21 04:35] LABS: ALT (SGPT) 23 U/L (Less than 45); AST (SGOT) 29 U/L (11-34); Albumin 2.7 g/dL (3.1-4.5); Alkaline Phosphatase 98 U/L (40-110); Anion Gap 13 mmol/L (10-20); BUN (Urea Nitrogen) 29 mg/dL (8.4-25.7); Bilirubin, Total 0.8 mg/dL (0.3-1.2); Calc. Creatinine Clearance 127 mL/min (70-130); Calcium 8.5 mg/dL (7.8-10.44); Carbon Dioxide 19 mmol/L (23-31); Chloride 107 mmol/L (98-107); Globulin 3.5 g/dL (2.4-3.5); Glucose 93 mg/dL (83-110); Potassium 3.8 mmol/L (3.5-5.1); Sodium 135 mmol/L (136-145)
[2025-05-21] MEDS: Spironolactone 25 MG TAB PO SCH (10:00)
[2025-05-22] MEDS: Enoxaparin 100 MG (1 mL) SYRINGE SC SCH (21:43)
[2025-05-23] MEDS: Furosemide 40 MG (4 mL) VIAL SLOW IVP SCH (12:04)
[2025-05-23] MEDS: PRIVIGEN IVPB SCH (14:31)
[2025-05-23] MEDS: ADMIXTURE FEE CHEMO IVPB SCH (14:31)
[2025-05-24 04:20] LABS: Hematocrit 31.3 % (42.0-52.0); Hemoglobin 10.1 g/dL (14.0-18.0); Mean Corpuscular Hemoglobin 29.9 pg (27.0-31.0); Mean Corpuscular Volume 92.6 fL (78.0-98.0); Platelet Count 292 10x3/uL (130-400); Red Blood Cell (RBC) Count 3.38 mill/uL (4.70-6.10); White Blood Cell (WBC) Count 11.39 10x3/uL (4.8-10.8)
[2025-05-24 05:11] VITALS: BMI 29.4
[2025-05-24 05:54] LABS: Anion Gap 12 mmol/L (10-20); BUN (Urea Nitrogen) 35 mg/dL (8.4-25.7); Calc. Creatinine Clearance 100 mL/min (70-130); Calcium 8.5 mg/dL (7.8-10.44); Carbon Dioxide 20 mmol/L (23-31); Chloride 109 mmol/L (98-107); Glucose 79 mg/dL (83-110); Potassium 2.7 mmol/L (3.5-5.1); Sodium 138 mmol/L (136-145)
[2025-05-24] MEDS: Potassium Bicarbonate/Cit Ac 20 MEQ TAB PO SCH ×2 (10:20→23:13)
[2025-05-24 12:51] LABS: Magnesium 2.0 mg/dL (1.6-2.6)
[2025-05-24] MEDS: Magnesium 2 GM/50 ML(in water) 2 GM in Premix 1 BAG IVPB SCH (14:13)
[2025-05-24] MEDS: Privigen 20 GM, Privigen 10 GM in IV Admixture Fee-Chemo 1 UNITS IVPB SCH (15:25)
[2025-05-24 17:11] LABS: Potassium 3.4 mmol/L (3.5-5.1)
[2025-05-25 04:56] LABS: #Basophils 0.04 10x3/uL (0.0-0.2); #Eosinophils 0.26 10x3/uL (0.0-0.7); #Monocytes 1.20 10x3/uL (0.11-0.59); #Neutrophils 9.46 10x3/uL (1.40-6.50); %Basophils 0.3 % (0.0-1.0); %Eosinophils 2.2 % (0.0-10.0); %Lymphocytes 7.5 % (21.0-51.0); %Monocytes 10.0 % (0.0-10.0); %Neutrophils 78.7 % (42.0-75.0); Hematocrit 33.3 % (42.0-52.0); Hemoglobin 10.6 g/dL (14.0-18.0); Mean Corpuscular Hemoglobin 29.3 pg (27.0-31.0); Mean Corpuscular Volume 92.0 fL (78.0-98.0); Platelet Count 284 10x3/uL (130-400); Red Blood Cell (RBC) Count 3.62 mill/uL (4.70-6.10); White Blood Cell (WBC) Count 12.02 10x3/uL (4.8-10.8)
[2025-05-25 05:13] LABS: Anion Gap 11 mmol/L (10-20); BUN (Urea Nitrogen) 30 mg/dL (8.4-25.7); Calc. Creatinine Clearance 118 mL/min (70-130); Calcium 8.3 mg/dL (7.8-10.44); Carbon Dioxide 24 mmol/L (23-31); Chloride 109 mmol/L (98-107); Glucose 86 mg/dL (83-110); Potassium 3.5 mmol/L (3.5-5.1); Sodium 140 mmol/L (136-145)
[2025-05-25] MEDS ORDERED: Spironolactone 25 MG TAB PO SCH (08:19)
[2025-05-25] MEDS: Furosemide 20 MG (2 mL) VIAL SLOW IVP SCH (08:57)
[2025-05-25] MEDS: Spironolactone 25 MG TAB PO SCH (08:59)
[2025-05-25] MEDS: Sodium Ferric Gluconate 250 MG in Sodium Chloride 0.9% 250 ML 250 ML IVPB SCH (12:16)
[2025-05-25] MEDS: Losartan 25 MG TAB PO SCH (12:21)
[2025-05-26 04:41] LABS: #Basophils 0.03 10x3/uL (0.0-0.2); #Eosinophils 0.23 10x3/uL (0.0-0.7); #Monocytes 1.26 10x3/uL (0.11-0.59); #Neutrophils 12.37 10x3/uL (1.40-6.50); %Basophils 0.2 % (0.0-1.0); %Eosinophils 1.5 % (0.0-10.0); %Lymphocytes 7.3 % (21.0-51.0); %Monocytes 8.3 % (0.0-10.0); %Neutrophils 80.9 % (42.0-75.0); Hematocrit 31.7 % (42.0-52.0); Hemoglobin 10.1 g/dL (14.0-18.0); Mean Corpuscular Hemoglobin 29.6 pg (27.0-31.0); Mean Corpuscular Volume 93.0 fL (78.0-98.0); Platelet Count 302 10x3/uL (130-400); Red Blood Cell (RBC) Count 3.41 mill/uL (4.70-6.10); White Blood Cell (WBC) Count 15.27 10x3/uL (4.8-10.8)
[2025-05-26 05:15] LABS: Anion Gap 5 mmol/L (10-20); BUN (Urea Nitrogen) 32 mg/dL (8.4-25.7); Calc. Creatinine Clearance 100 mL/min (70-130); Calcium 8.1 mg/dL (7.8-10.44); Carbon Dioxide 22 mmol/L (23-31); Chloride 112 mmol/L (98-107); Glucose 87 mg/dL (83-110); Potassium 3.2 mmol/L (3.5-5.1); Sodium 136 mmol/L (136-145)
[2025-05-26] MEDS: Losartan 25 MG TAB PO SCH (09:17)
[2025-05-26] MEDS: Spironolactone 25 MG TAB PO SCH (09:17)
[2025-05-26 13:31] LABS: CAUTI Indications for Culture Immunosuppressed; Glucose, Urine (Dipstick) Greater than 1000 mg/dL (Negative); Leukocyte Negative Leu/uL (Negative); Protein, Urine (Dipstick) 30 mg/dL (Neg-Trace); RBC/HPF 21-50 HPF (0-3); Specific Gravity, Urine 1.026 (1.002-1.036)
[2025-05-26 13:32] LABS: Bacteria/HPF 1+ HPF (None Seen)
[2025-05-26 13:33] LABS: Urine Culture Reflex Yes Yes
[2025-05-26] MEDS: HYDROcodone/Acetaminophen 5/325 mg Tablet PO PRN (20:35)
[2025-05-27 04:27] LABS: #Basophils 0.03 10x3/uL (0.0-0.2); #Eosinophils 0.37 10x3/uL (0.0-0.7); #Monocytes 0.92 10x3/uL (0.11-0.59); #Neutrophils 9.36 10x3/uL (1.40-6.50); %Basophils 0.2 % (0.0-1.0); %Eosinophils 3.1 % (0.0-10.0); %Lymphocytes 9.9 % (21.0-51.0); %Monocytes 7.6 % (0.0-10.0); %Neutrophils 77.1 % (42.0-75.0); Hematocrit 33.4 % (42.0-52.0); Hemoglobin 10.6 g/dL (14.0-18.0); Mean Corpuscular Hemoglobin 29.5 pg (27.0-31.0); Mean Corpuscular Volume 93.0 fL (78.0-98.0); Platelet Count 306 10x3/uL (130-400); Red Blood Cell (RBC) Count 3.59 mill/uL (4.70-6.10); White Blood Cell (WBC) Count 12.13 10x3/uL (4.8-10.8)
[2025-05-27 04:54] LABS: Anion Gap 9 mmol/L (10-20); BUN (Urea Nitrogen) 29 mg/dL (8.4-25.7); Calc. Creatinine Clearance 124 mL/min (70-130); Calcium 8.4 mg/dL (7.8-10.44); Carbon Dioxide 22 mmol/L (23-31); Chloride 108 mmol/L (98-107); Glucose 102 mg/dL (83-110); Magnesium 2.0 mg/dL (1.6-2.6); Potassium 3.4 mmol/L (3.5-5.1); Sodium 136 mmol/L (136-145)
[2025-05-27] MEDS: Cyclobenzaprine 10 MG TAB PO SCH (05:07)
[2025-05-27] MEDS: Magnesium 2 GM/50 ML(in water) 2 GM in Premix 1 BAG IVPB SCH (09:42)
[2025-05-27] MEDS: HYDROcodone/Acetaminophen 5/325 mg Tablet PO PRN (13:36)
[2025-05-27] MEDS: Cyclobenzaprine 10 MG TAB PO PRN (13:37)
[2025-05-27] MEDS: Losartan 25 MG TAB PO SCH (20:41)
[2025-05-28 04:35] LABS: #Basophils 0.03 10x3/uL (0.0-0.2); #Eosinophils 0.39 10x3/uL (0.0-0.7); #Monocytes 0.73 10x3/uL (0.11-0.59); #Neutrophils 7.84 10x3/uL (1.40-6.50); %Basophils 0.3 % (0.0-1.0); %Eosinophils 3.8 % (0.0-10.0); %Lymphocytes 10.3 % (21.0-51.0); %Monocytes 7.1 % (0.0-10.0); %Neutrophils 76.5 % (42.0-75.0); Hematocrit 34.5 % (42.0-52.0); Hemoglobin 10.9 g/dL (14.0-18.0); Mean Corpuscular Hemoglobin 29.6 pg (27.0-31.0); Mean Corpuscular Volume 93.8 fL (78.0-98.0); Platelet Count 321 10x3/uL (130-400); Red Blood Cell (RBC) Count 3.68 mill/uL (4.70-6.10); White Blood Cell (WBC) Count 10.25 10x3/uL (4.8-10.8)
[2025-05-28 05:07] LABS: Albumin 2.1 g/dL (3.1-4.5); Anion Gap 9 mmol/L (10-20); BUN (Urea Nitrogen) 27 mg/dL (8.4-25.7); Bilirubin, Total 0.8 mg/dL (0.3-1.2); Calc. Creatinine Clearance 124 mL/min (70-130); Calcium 8.5 mg/dL (7.8-10.44); Carbon Dioxide 23 mmol/L (23-31); Chloride 107 mmol/L (98-107); Glucose 87 mg/dL (83-110); Potassium 3.4 mmol/L (3.5-5.1); Sodium 136 mmol/L (136-145)
[2025-05-28 05:08] LABS: ALT (SGPT) 29 U/L (Less than 45); AST (SGOT) 42 U/L (11-34); Alkaline Phosphatase 108 U/L (40-110); Globulin 4.9 g/dL (2.4-3.5); Magnesium 2.2 mg/dL (1.6-2.6)
[2025-05-29 05:06] LABS: #Basophils Less than 0.03 10x3/uL (0.0-0.2); #Eosinophils 0.33 10x3/uL (0.0-0.7); #Monocytes 0.59 10x3/uL (0.11-0.59); #Neutrophils 6.89 10x3/uL (1.40-6.50); %Basophils 0.2 % (0.0-1.0); %Eosinophils 3.7 % (0.0-10.0); %Lymphocytes 11.5 % (21.0-51.0); %Monocytes 6.6 % (0.0-10.0); %Neutrophils 76.7 % (42.0-75.0); Hematocrit 33.5 % (42.0-52.0); Hemoglobin 10.7 g/dL (14.0-18.0); Mean Corpuscular Hemoglobin 29.6 pg (27.0-31.0); Mean Corpuscular Volume 92.8 fL (78.0-98.0); Platelet Count 335 10x3/uL (130-400); Red Blood Cell (RBC) Count 3.61 mill/uL (4.70-6.10); White Blood Cell (WBC) Count 8.98 10x3/uL (4.8-10.8)
[2025-05-29 05:22] LABS: ALT (SGPT) 30 U/L (Less than 45); AST (SGOT) 45 U/L (11-34); Albumin 2.0 g/dL (3.1-4.5); Alkaline Phosphatase 106 U/L (40-110); Anion Gap 9 mmol/L (10-20); BUN (Urea Nitrogen) 24 mg/dL (8.4-25.7); Bilirubin, Total 0.7 mg/dL (0.3-1.2); Calc. Creatinine Clearance 122 mL/min (70-130); Calcium 8.3 mg/dL (7.8-10.44); Carbon Dioxide 22 mmol/L (23-31); Chloride 108 mmol/L (98-107); Globulin 4.4 g/dL (2.4-3.5); Glucose 85 mg/dL (83-110); Potassium 3.8 mmol/L (3.5-5.1); Sodium 135 mmol/L (136-145)
[2025-05-29] MEDS: Aspirin 325 MG TAB PO SCH (10:51)
[2025-05-29] MEDS: Nitroglycerin 0.4 MG TAB (25 Tab Bottle) SL PRN (11:07)
[2025-05-29] MEDS: Metoprolol Succinate XL 25 MG ER.TAB PO SCH (13:16)
[2025-05-29] MEDS: Nitroglycerin 2% Ointment 1 INCH/1 GM Packet TOP SCH ×2 (13:16→18:17)
[2025-05-30 04:16] LABS: #Basophils 0.04 10x3/uL (0.0-0.2); #Eosinophils 0.27 10x3/uL (0.0-0.7); #Monocytes 0.85 10x3/uL (0.11-0.59); #Neutrophils 8.56 10x3/uL (1.40-6.50); %Basophils 0.4 % (0.0-1.0); %Eosinophils 2.4 % (0.0-10.0); %Lymphocytes 13.2 % (21.0-51.0); %Monocytes 7.5 % (0.0-10.0); %Neutrophils 75.0 % (42.0-75.0); Hematocrit 31.3 % (42.0-52.0); Hemoglobin 10.2 g/dL (14.0-18.0); Mean Corpuscular Hemoglobin 29.8 pg (27.0-31.0); Mean Corpuscular Volume 91.5 fL (78.0-98.0); Platelet Count 357 10x3/uL (130-400); Red Blood Cell (RBC) Count 3.42 mill/uL (4.70-6.10); White Blood Cell (WBC) Count 11.39 10x3/uL (4.8-10.8)
[2025-05-30 04:37] LABS: ALT (SGPT) 36 U/L (Less than 45); AST (SGOT) 47 U/L (11-34); Albumin 1.9 g/dL (3.1-4.5); Alkaline Phosphatase 118 U/L (40-110); Anion Gap 9 mmol/L (10-20); BUN (Urea Nitrogen) 20 mg/dL (8.4-25.7); Bilirubin, Total 0.6 mg/dL (0.3-1.2); Calc. Creatinine Clearance 113 mL/min (70-130); Calcium 8.1 mg/dL (7.8-10.44); Carbon Dioxide 21 mmol/L (23-31); Chloride 109 mmol/L (98-107); Globulin 4.2 g/dL (2.4-3.5); Glucose 87 mg/dL (83-110); Potassium 4.3 mmol/L (3.5-5.1); Sodium 135 mmol/L (136-145)
[2025-05-30] MEDS: Aspirin 325 MG TAB PO SCH (08:52)
[2025-05-30] MEDS: Metoprolol Succinate XL 25 MG ER.TAB PO SCH (08:52)
[2025-05-31 04:14] LABS: #Basophils 0.05 10x3/uL (0.0-0.2); #Eosinophils 0.16 10x3/uL (0.0-0.7); #Monocytes 1.03 10x3/uL (0.11-0.59); #Neutrophils 9.59 10x3/uL (1.40-6.50); %Basophils 0.4 % (0.0-1.0); %Eosinophils 1.3 % (0.0-10.0); %Lymphocytes 10.8 % (21.0-51.0); %Monocytes 8.4 % (0.0-10.0); %Neutrophils 78.3 % (42.0-75.0); Hematocrit 32.9 % (42.0-52.0); Hemoglobin 10.7 g/dL (14.0-18.0); Mean Corpuscular Hemoglobin 30.1 pg (27.0-31.0); Mean Corpuscular Volume 92.4 fL (78.0-98.0); Platelet Count 366 10x3/uL (130-400); Red Blood Cell (RBC) Count 3.56 mill/uL (4.70-6.10); White Blood Cell (WBC) Count 12.26 10x3/uL (4.8-10.8)
[2025-05-31 04:35] LABS: ALT (SGPT) 41 U/L (Less than 45); AST (SGOT) 49 U/L (11-34); Albumin 2.1 g/dL (3.1-4.5); Alkaline Phosphatase 128 U/L (40-110); Anion Gap 11 mmol/L (10-20); BUN (Urea Nitrogen) 18 mg/dL (8.4-25.7); Bilirubin, Total 0.7 mg/dL (0.3-1.2); Calc. Creatinine Clearance 115 mL/min (70-130); Calcium 8.7 mg/dL (7.8-10.44); Carbon Dioxide 21 mmol/L (23-31); Chloride 109 mmol/L (98-107); Globulin 4.4 g/dL (2.4-3.5); Glucose 89 mg/dL (83-110); Potassium 4.1 mmol/L (3.5-5.1); Sodium 137 mmol/L (136-145)
[2025-05-31] MEDS: Metoprolol Succinate XL 25 MG ER.TAB PO SCH (12:17)
[2025-05-31] MEDS: Apixaban 5 MG TAB PO SCH (22:04)
[2025-06-01 03:57] LABS: #Basophils 0.04 10x3/uL (0.0-0.2); #Eosinophils 0.17 10x3/uL (0.0-0.7); #Monocytes 0.92 10x3/uL (0.11-0.59); #Neutrophils 9.40 10x3/uL (1.40-6.50); %Basophils 0.3 % (0.0-1.0); %Eosinophils 1.4 % (0.0-10.0); %Lymphocytes 11.6 % (21.0-51.0); %Monocytes 7.6 % (0.0-10.0); %Neutrophils 78.2 % (42.0-75.0); Hematocrit 32.7 % (42.0-52.0); Hemoglobin 10.3 g/dL (14.0-18.0); Mean Corpuscular Hemoglobin 29.7 pg (27.0-31.0); Mean Corpuscular Volume 94.2 fL (78.0-98.0); Platelet Count 390 10x3/uL (130-400); Red Blood Cell (RBC) Count 3.47 mill/uL (4.70-6.10); White Blood Cell (WBC) Count 12.04 10x3/uL (4.8-10.8)
[2025-06-01 04:05] LABS: Anion Gap 11 mmol/L (10-20); BUN (Urea Nitrogen) 19 mg/dL (8.4-25.7); Calc. Creatinine Clearance 115 mL/min (70-130); Calcium 8.6 mg/dL (7.8-10.44); Carbon Dioxide 21 mmol/L (23-31); Chloride 108 mmol/L (98-107); Glucose 86 mg/dL (83-110); Potassium 4.0 mmol/L (3.5-5.1); Sodium 136 mmol/L (136-145)
[2025-06-01] MEDS: Metoprolol Succinate XL 50 MG ER.TAB PO SCH (10:23)
[2025-06-01 14:35] VITALS: BMI 27.6
[2025-06-01] MEDS: Ondansetron PF 4 MG/2 ML Vial IVP PRN (21:41)
[2025-06-02 04:02] LABS: #Basophils 0.04 10x3/uL (0.0-0.2); #Eosinophils 0.20 10x3/uL (0.0-0.7); #Monocytes 1.05 10x3/uL (0.11-0.59); #Neutrophils 10.33 10x3/uL (1.40-6.50); %Basophils 0.3 % (0.0-1.0); %Eosinophils 1.5 % (0.0-10.0); %Lymphocytes 10.1 % (21.0-51.0); %Monocytes 8.1 % (0.0-10.0); %Neutrophils 79.4 % (42.0-75.0); Hematocrit 30.9 % (42.0-52.0); Hemoglobin 9.8 g/dL (14.0-18.0); Mean Corpuscular Hemoglobin 29.9 pg (27.0-31.0); Mean Corpuscular Volume 94.2 fL (78.0-98.0); Platelet Count 430 10x3/uL (130-400); Red Blood Cell (RBC) Count 3.28 mill/uL (4.70-6.10); White Blood Cell (WBC) Count 13.01 10x3/uL (4.8-10.8)
[2025-06-02 04:19] LABS: Anion Gap 13 mmol/L (10-20); BUN (Urea Nitrogen) 24 mg/dL (8.4-25.7); Calc. Creatinine Clearance 94 mL/min (70-130); Calcium 8.5 mg/dL (7.8-10.44); Carbon Dioxide 22 mmol/L (23-31); Chloride 105 mmol/L (98-107); Glucose 106 mg/dL (83-110); Potassium 4.2 mmol/L (3.5-5.1); Sodium 136 mmol/L (136-145)
[2025-06-03 03:56] LABS: #Basophils 0.05 10x3/uL (0.0-0.2); #Eosinophils 0.32 10x3/uL (0.0-0.7); #Monocytes 1.09 10x3/uL (0.11-0.59); #Neutrophils 8.42 10x3/uL (1.40-6.50); %Basophils 0.5 % (0.0-1.0); %Eosinophils 2.9 % (0.0-10.0); %Lymphocytes 10.4 % (21.0-51.0); %Monocytes 9.8 % (0.0-10.0); %Neutrophils 75.8 % (42.0-75.0); Hematocrit 30.1 % (42.0-52.0); Hemoglobin 9.6 g/dL (14.0-18.0); Mean Corpuscular Hemoglobin 30.2 pg (27.0-31.0); Mean Corpuscular Volume 94.7 fL (78.0-98.0); Platelet Count 458 10x3/uL (130-400); Red Blood Cell (RBC) Count 3.18 mill/uL (4.70-6.10); White Blood Cell (WBC) Count 11.10 10x3/uL (4.8-10.8)
[2025-06-03 04:37] LABS: Anion Gap 12 mmol/L (10-20); BUN (Urea Nitrogen) 26 mg/dL (8.4-25.7); Calc. Creatinine Clearance 102 mL/min (70-130); Calcium 8.5 mg/dL (7.8-10.44); Carbon Dioxide 19 mmol/L (23-31); Chloride 110 mmol/L (98-107); Glucose 94 mg/dL (83-110); Potassium 4.5 mmol/L (3.5-5.1); Sodium 136 mmol/L (136-145)
[2025-06-03 11:35] VITALS: BP 143/63; TEMP 98.2
== END 2025-06-03 12:30 | DRG 94 ==
LOC: ERS 16:33 → CCU 21:09 → 2SE 05-20 13:46
PROVIDERS: ADMIT Student in an Organized Health Care Education/Training Program; ATTEND Internal Medicine
PROC: 009U3ZX Drainage of Spinal Canal, Percutaneous Approach, Diagnostic (ICD-10-PCS; principal; 2025-05-17)
PROC: B01B1ZZ Fluoroscopy of Spinal Cord using Low Osmolar Contrast (ICD-10-PCS; 2025-05-17)
DX: G61.0 Guillain-Barre syndrome (principal); G93.41 Metabolic encephalopathy; J15.69 Pneumonia due to other Gram-negative bacteria; J96.01 Acute respiratory failure with hypoxia; E87.1 Hypo-osmolality and hyponatremia; G82.20 Paraplegia, unspecified; I50.32 Chronic diastolic (congestive) heart failure; J44.1 Chronic obstructive pulmonary disease with (acute) exacerbation; I47.20 Ventricular tachycardia, unspecified; Z66 Do not resuscitate; R53.1 Weakness; R29.810 Facial weakness; E87.6 Hypokalemia; I11.0 Hypertensive heart disease with heart failure; I25.10 Atherosclerotic heart disease of native coronary artery without angina pectoris; F17.210 Nicotine dependence, cigarettes, uncomplicated; I27.20 Pulmonary hypertension, unspecified; R00.1 Bradycardia, unspecified; E78.5 Hyperlipidemia, unspecified; Y95 Nosocomial condition; R33.9 Retention of urine, unspecified; N40.1 Benign prostatic hyperplasia with lower urinary tract symptoms; E03.9 Hypothyroidism, unspecified; R19.7 Diarrhea, unspecified; Z92.82 Status post administration of tPA (rtPA) in a different facility within the last 24 hours prior to admission to current facility; Z79.899 Other long term (current) drug therapy; Z79.890 Hormone replacement therapy; Z98.890 Other specified postprocedural states; Z79.84 Long term (current) use of oral hypoglycemic drugs; Z79.51 Long term (current) use of inhaled steroids; Z79.82 Long term (current) use of aspirin
CPT/HCPCS: 36415; 36416; 62270; 70450; 70551; 71045; 72141; 72146; 72148; 80048; 80053; 80061; 81001; 82728; 82945; 83540; 83550; 83735; 83880; 84100; 84157; 84443; 84484; 85025; 85027; 87070; 87086; 87205; 89051; 93005; 93010; 93306; 93970; 94640; 94664; 96374; 96375; 97139; J0360; J0461; J1250; J1459; J1650; J1940; J2270; J2405; J2543; J2550; J2916; J3475; J3480; J7030; J7050; J7620; Q0162